=== PATIENT | female | born 1995 | race Caucasian/White ===

== ENCOUNTER 2017-06-14 12:25 | Emergency (ER) | payer MEDICAID ==
[2017-06-14 16:31] LABS: BASOPHILS 0.2 % (0-2); EOSINOPHILS 1.5 % (0-7); HEMATOCRIT 34.8 % (36.0-48.0); HEMOGLOBIN 12.2 g/dL (12-16); IMMATURE GRANULOCYTES 0.2 % (0-5); LYMPHOCYTES 41.1 % (15-50); MCH 30.8 pg (26.0-34.0); MCHC 35.1 g/dL (31.0-37.0); MCV 87.9 fL (80.0-100.0); MEAN PLATELET VOLUME 8.7 fL (7.4-10.4); MONOCYTES 5.5 % (2-11); NEUTROPHILS 51.5 % (40-80); PLATELET COUNT 337 10x3/uL (130-400); RBC 3.96 10x6/uL (4.00-5.40); RDW 12.3 % (11.5-14.5); WBC 14.4 10x3/uL (4.8-10.8)
[2017-06-14 16:47] LABS: CALC OSMOLALITY 276 mosm/kg (275-300); CALCIUM 8.9 mg/dL (8.5-10.1); CARBON DIOXIDE 27.3 mmol/L (21.0-32.0); CHLORIDE - SERUM 103 mmol/L (98-107); CREATININE - SERUM 0.9 mg/dL (0.6-1.3); GLUCOSE 91 mg/dL (74-106); POTASSIUM - SERUM 3.1 mmol/L (3.5-5.1); SODIUM 139 mmol/L (136-145); UREA NITROGEN 10 mg/dL (7-18); eGFR NON AFRICAN AMERICAN 83 mL/min (90-120)
== END 2017-06-14 19:15 | disposition home or self-care (01) ==
LOC: D.ER 12:25
PROVIDERS: Nurse Practitioner Acute Care
DX: J03.90 Acute tonsillitis, unspecified (principal)

== ENCOUNTER 2017-06-29 08:35 | Day surgery (SDC) | payer MEDICAID ==
[2017-06-29 09:21] VITALS: BP 90/55; BMI 19.6
[2017-06-29 09:31] LABS: HEMATOCRIT 34.7 % (36.0-48.0); HEMOGLOBIN 12.1 g/dL (12-16); MCH 30.9 pg (26.0-34.0); MCHC 34.9 g/dL (31.0-37.0); MCV 88.5 fL (80.0-100.0); MEAN PLATELET VOLUME 8.9 fL (7.4-10.4); RBC 3.92 10x6/uL (4.00-5.40); RDW 12.2 % (11.5-14.5); WBC 8.3 10x3/uL (4.8-10.8)
--- NOTE | 2017-06-29 09:34 | NUR ---
PATIENT DOES NOT HAVE ANY PAIN MEDS.
--- NOTE | 2017-06-29 13:40 | NUR ---
1330-PT. ESCORTED VIA WHEELCHAIR TO PERSONAL CAR, LEFT WITH DRIVING.
--- NOTE | 2017-07-02 10:36 | OP ---
PATIENT NAME: MELBA CHASE MEDICAL RECORD: [id number] :95 LOCATION:[facility] ADMISSION DATE: SURGEON: AUBRIE CHO MD DATE OF OPERATION: 06/29/2017 PREOPERATIVE DIAGNOSIS: Chronic pharyngitis. POSTOPERATIVE DIAGNOSIS: Chronic pharyngitis. PROCEDURES: Tonsillectomy and adenoidectomy. SURGEON: Aubrie Cho MD ANESTHESIA: General orotracheal. BLOOD LOSS: Less than 5 cc. SPECIMENS: Right and left tonsil. COMPLICATIONS: None. DISPOSITION: Recovery to stable. PROCEDURE IN DETAIL: She was brought to the operating room, placed in the supine position, and sedated and intubated by anesthesia. The table was turned 90 degrees. Head drape was applied and she was positioned for tonsillectomy. Using headlight, a Anthony-Kenny mouth gag was carefully inserted and elevated on a towel on her chest. The palate was examined and palpated, it was normal. She had copious caseous material extruding from the right tonsil that was suctioned. Red rubber catheter was placed through the right side of the nose into the pharynx and grasped with tonsil clamp to retract the soft palate. Using a mirror, the nasopharynx was examined. Suction cautery on a setting of 35 was used to ablate and suction the adenoid pad with no significant bleeding. The red rubber catheter was let down and removed. The right tonsil was grasped at the superior pole with a straight Allis clamp. Spatula tip cautery on a setting of 9 was used to dissect out the tonsil along its capsule, preserving anterior and posterior tonsillar pillars. The left tonsil was removed in the same fashion. Then, both sides of the nose were irrigated with saline. The pharynx was suctioned. Tonsillar fossae were agitated. Suction cautery on a setting of 20 was used to control minimal oozing. With the field clean and dry, the Anthony-Kenny mouth gag was let down and removed. She was awakened, extubated, and transported to recovery in good condition. No complications. TRANSINT:[id number] Voice Confirmation ID: [id number] DOCUMENT ID: [id number] AUBRIE CHO MD at 1037 CC: [id number] DICTATION DATE: 06/29/17 1151 CAREER SERVICES COORDINATOR: 06/29/17 1332 [facility] 06/29/17 [place] [id number] [place] [id number]
--- NOTE | 2017-07-02 10:36 | HP ---
PATIENT: MELBA CHASE MEDICAL RECORD: [id number] ACCOUNT: [id number] LOCATION:[facility] : 95 ADMISSION DATE: 06/29/17 HISTORY AND PHYSICAL EXAMINATION HISTORY OF PRESENT ILLNESS: Melba is 22 years old. She has had chronic caseous tonsillitis, and being admitted for tonsillectomy. PAST MEDICAL HISTORY: Includes peptic ulcers, seizure. PAST SURGICAL HISTORY: Includes lymph node removed in 2008, tubal ligation in 2016. CURRENT MEDICATIONS: Omnicef. ALLERGIES: TO PENICILLIN, OXYCONTIN, TORADOL, STADOL AND ATIVAN. PHYSICAL EXAMINATION: GENERAL: She is healthy-appearing, developmentally normal. FACE: Normal, symmetric, no lesions. EYES: Sclerae and conjunctivae are normal. EARS: Canals and TMs are normal. NOSE: No mass, polyps or lesions. ORAL CAVITY AND OROPHARYNX: 2-3+ cryptic tonsils with caseous tonsillitis bilaterally. NECK: No masses, no adenopathy. CHEST: Clear. CARDIOVASCULAR: Regular rate and rhythm, no murmur. EXTREMITIES: Normal. IMPRESSION: Chronic tonsillitis. PLAN: Tonsillectomy and adenoidectomy. TRANSINT:[id number] Voice Confirmation ID: [id number] DOCUMENT ID: [id number] AUBRIE TIJERINA MD at 1036 CC: [id number] DICTATION DATE: 06/27/17 1343 HOUSE RN: 06/27/17 1400 [facility] 06/29/17 [place] [address]
== END 2017-06-29 13:30 | disposition home or self-care (01) ==
LOC: D.OPS 08:35 → D.PAN 10:30 → D.OPS 10:30
PROVIDERS: Anesthesiology
DX: J31.2 Chronic pharyngitis (principal)